=== PATIENT | male | born 1945 | race Caucasian/White ===

== ENCOUNTER → 2020-02-22 | Outpatient (CLI) | payer MEDICARE ==
--- NOTE | 2020-02-22 10:56 | Diagnostic Imaging Report ---
INDICATION: Followup foot fracture. TIME OF EXAM: 9:19 AM. COMPARISON: No prior studies are available for comparison. FINDINGS: There is generalized demineralization of the right foot. There is a fracture at the base of the 5th metatarsal. The fracture line remains clearly visible. The phalanges appear to be intact. The midfoot and hindfoot are intact. There is a plantar calcaneal spur. No other fractures are seen. IMPRESSION: Proximal 5th metatarsal fracture. Dictated by: Dictated on workstation # [id number]
== END ==
LOC: RAD FS 08:53
PROVIDERS: ATTEND Nurse Practitioner
DX: S92.354A Nondisplaced fracture of fifth metatarsal bone, right foot, initial encounter for closed fracture (principal); X58.XXXA Exposure to other specified factors, initial encounter
CPT/HCPCS: 73630

== ENCOUNTER → 2021-06-30 | Outpatient (CLI) | payer MEDICARE | LOC: LAB FS 10:34 | PROVIDERS: ATTEND Emergency Medicine | DX: Z01.812 Encounter for preprocedural laboratory examination (principal); Z20.822 Contact with and (suspected) exposure to COVID-19 | CPT/HCPCS: 87636 ==

== ENCOUNTER → 2021-07-14 | Outpatient (CLI) | payer MEDICARE | LOC: LAB FS 10:04 | PROVIDERS: ATTEND Emergency Medicine | DX: Z01.812 Encounter for preprocedural laboratory examination (principal); Z20.822 Contact with and (suspected) exposure to COVID-19 | CPT/HCPCS: 87636 ==

== ENCOUNTER 2021-12-26 18:55 | Emergency (ER) | payer MEDICARE ==
[~2021-12-26] VITALS: Ht 187.9 cm; Wt 111.9 kg
[2021-12-26 18:59] VITALS: BP 158/81
[2021-12-26] MEDS ORDERED: DOXYCYCLINE 100 MG (VIBRAMYCIN) TABLET PO STA (19:09)
[2021-12-26] MEDS ORDERED: CEPHALEXIN 250 MG (KEFLEX) CAP PO STA (19:09)
--- NOTE | 2021-12-26 19:09 | ED Lower Extremity ---
General Chief Complaint: Lower Extremity Stated Complaint: L LEFT LEG PAIN Source: patient Exam Limitations: no limitations History of Present Illness Date Seen by Provider: Dec 26, 2021 Time Seen by Provider: 19:07 Initial Comments 76-year-old male with past medical history of A. fib status post ablation no longer on anticoagulation, hypertension, seizure disorder coming in due to left lower extremity redness and swelling. He was referred from urgent care. The redness started on Saturday, he has not really hurt him, no recent surgery, no recent long travel, no prior history of DVT or PE, no chest pain, no shortness of breath, no fever. He says nothing like this is ever happened before. He says the redness is slowly spreading up his leg and started in his foot. He says he did hit his kennedy on something and had an open wound that was small over a week ago. He is otherwise denying any other acute complaints. Allergies and Home Medications Allergies Coded Allergies: morphine (Verified Allergy, Unknown, hallucinations, 12/26/21) Patient Home Medication List Home Medication List Reviewed: Yes Cephalexin (Cephalexin) 500 Mg Tablet, 500 MG PO QID Prescribed by: JUSTIN MONDRAGON on 12/26/211933 Doxycycline Hyclate (Doxycycline Hyclate) 100 Mg Tablet, 100 MG PO BID Prescribed by: JUSTIN MONDRAGON on 12/26/211933 Review of Systems Constitutional: No chills, No fever EENTM: No blurred vision Respiratory: no symptoms reported Cardiovascular: no symptoms reported Gastrointestinal: no symptoms reported Genitourinary: no symptoms reported Musculoskeletal: other (left leg swelling and redness) Skin: rash Psychiatric/Neurological: No Symptoms Reported All Other Systems Reviewed Negative Unless Noted: Yes Past Btblguv-Vxcwjh-Ygivgd Hx Patient Social History Tobacco Use?: No Substance use?: No Alcohol Use?: No Past Medical History Surgeries: Yes (skin surgery removal, afib ablation) Physical Exam Vital Signs Vital Signs - First Documented 12/26/21 18:59 Temp 37.0 Pulse 55 Resp 16 B/P (MAP) 158/81 (106) Pulse Ox 96 O2 Delivery Room Air Capillary Refill : Height, Weight, BMI Height: '" Weight: lbs. oz. kg; BMI Method: General Appearance: WD/WN, no apparent distress HEENT: PERRL/EOMI, normal ENT inspection, pharynx normal Neck: non-tender, full range of motion, supple, normal inspection Cardiovascular: regular rate, rhythm, no edema, no murmur Respiratory: chest non-tender, lungs clear, normal breath sounds, no respiratory distress, no accessory muscle use Gastrointestinal: normal bowel sounds, non tender, soft; No distended, No guarding, No rebound Legs: left leg other (Left leg with redness and edema, left leg is roughly 5 cm larger in circumference compared to the right when measured above the ankle, bilateral lower extremity edema, no calf tenderness to squeeze, small, old open wound that is more of an abrasion to the left kennedy) Neurologic/Tendon: normal sensation, normal motor functions, normal tendon functions Neurologic/Psychiatric: no motor/sensory deficits, alert, normal mood/affect Skin: normal color, warm/dry Lymphatic: no adenopathy Progress/Results/Core Measures Results/Orders Lab Results Laboratory Tests Test 12/26/21 19:15 Range/Units White Blood Count 8.8 4.3-11.0 10^3/uL Red Blood Count 4.48 4.30-5.52 10^6/uL Hemoglobin 13.4 13.3-17.7 g/dL Hematocrit 40 40-54 % Mean Corpuscular Volume 89 80-99 fL Mean Corpuscular Hemoglobin 30 25-34 pg Mean Corpuscular Hemoglobin Concent 34 32-36 g/dL Red Cell Distribution Width 15.1 H 10.0-14.5 % Platelet Count 227 130-400 10^3/uL Mean Platelet Volume 12.8 H 9.0-12.2 fL Immature Granulocyte % (Auto) 0 % Neutrophils (%) (Auto) 38 L 42-75 % Lymphocytes (%) (Auto) 39 12-44 % Monocytes (%) (Auto) 12 0-12 % Eosinophils (%) (Auto) 9 0-10 % Basophils (%) (Auto) 1 0-10 % Neutrophils # (Auto) 3.4 1.8-7.8 10^3/uL Lymphocytes # (Auto) 3.5 1.0-4.0 10^3/uL Monocytes # (Auto) 1.0 0.0-1.0 10^3/uL Eosinophils # (Auto) 0.8 H 0.0-0.3 10^3/uL Basophils # (Auto) 0.1 0.0-0.1 10^3/uL Immature Granulocyte # (Auto) 0.0 0.0-0.1 10^3/uL Neutrophils % (Manual) 41 % Lymphocytes % (Manual) 42 % Monocytes % (Manual) 7 % Eosinophils % (Manual) 8 % Basophils % (Manual) 0 % Band Neutrophils 2 % Platelet Estimate NORMAL Poikilocytosis SLIGHT Microcytosis SLIGHT Macrocytosis SLIGHT Prothrombin Time 13.3 12.2-14.7 SEC INR Comment 1.0 0.8-1.4 Activated Partial Thromboplast Time 30 24-35 SEC D-Dimer 0.66 H 0.00-0.49 UG/ML Sodium Level 137 135-145 MMOL/L Potassium Level 4.1 3.6-5.0 MMOL/L Chloride Level 103 98-107 MMOL/L Carbon Dioxide Level 23 21-32 MMOL/L Anion Gap 11 5-14 MMOL/L Blood Urea Nitrogen 27 H 7-18 MG/DL Creatinine 1.66 H 0.60-1.30 MG/DL Estimat Glomerular Filtration Rate 43 BUN/Creatinine Ratio 16 Glucose Level 165 H 70-105 MG/DL Calcium Level 9.7 8.5-10.1 MG/DL C-Reactive Protein < 0.30 <0.50 MG/DL My Orders Orders - JUSTIN MONDRAGON MD Basic Metabolic Panel (12/26/21 19:09) Cbc With Automated Diff (12/26/21 19:09) Fibrin Degradation Products (12/26/21 19:09) Protime With Inr (12/26/21 19:09) Partial Thromboplastin Time (12/26/21 19:09) Crp Fs (12/26/21 19:09) Doxycycline Hyclate Tablet (Vibramycin T (12/26/21 19:09) Cephalexin Capsule (Keflex Capsule) (12/26/21 19:09) Manual Differential (12/26/21 19:15) Vital Signs/I&O 12/26/21 18:59 Temp 37.0 Pulse 55 Resp 16 B/P (MAP) 158/81 (106) Pulse Ox 96 O2 Delivery Room Air Progress Progress Note : Progress Note 76-year-old male with above history coming in due to left lower extremity swelling and redness. ABCs were intact and vitals were stable on presentation. Physical exam with the after mentioned findings. It appears more to be cellulitic on my exam. Is given doxycycline as well as Keflex. Age-adjusted D- dimer is technically negative. I did do a sjzwe-ci-[id number] ultrasound and his popliteal vessels are easily compressible with no signs of clot. I will give him an outpatient order for an ultrasound if things worsen/are not improving on the antibiotics. I believe he stable for discharge with outpatient follow-up. He was sent home with strict return precautions Departure Impression Primary Impression: Cellulitis Qualified Codes: L03.116 - Cellulitis of left lower limb Disposition: HOME, SELF-CARE Condition: Stable Departure-Patient Inst. Decision time for Depature: 19:56 Referrals: SELFDAVID MD (PCP/Family) Primary Care Physician Add. Discharge Instructions: It appears to be cellulitis which is an infection of your skin. You will be on 2 different antibiotics for 10 days. If after couple days the redness is continuing to spread, pain is getting worse, or you have any other concerns, I want you to take the outpatient order form for the ultrasound and call and schedule it. If you have difficulties with this I want you to present to an ER again. If you have severe chest pain or severe shortness of breath that would also want you to go to the ER. Scripts Cephalexin (Cephalexin) 500 Mg Tablet 500 MG PO QID for 10 Days, #40 TAB Prov: JUSTIN MONDRAGON MD 12/26/21 Doxycycline Hyclate (Doxycycline Hyclate) 100 Mg Tablet 100 MG PO BID for 10 Days, #20 TAB 0 Refills Prov: JUSTIN MONDRAGON MD 12/26/21 Work/School Note: Work Release Form Date Seen in the Emergency Department: Dec 26, 2021 Return to Work: Dec 28, 2021 Restrictions: No Restrictions JUSTIN MONDRAGON MD Dec 26, 2021 19:08
[2021-12-26 19:20] LABS: BASOPHILS # (AUTO) 0.1 10^3/uL (0.0-0.1); BASOPHILS % (AUTO) 1 % (0-10); EOSINOPHILS # (AUTO) 0.8 10^3/uL (0.0-0.3); EOSINOPHILS % (AUTO) 9 % (0-10); HEMATOCRIT 40 % (40-54); HEMOGLOBIN 13.4 g/dL (13.3-17.7); LYMPHOCYTES # (AUTO) 3.5 10^3/uL (1.0-4.0); LYMPHOCYTES % (AUTO) 39 % (12-44); MEAN CORPUSCULAR HEMOGLOBIN 30 pg (25-34); MEAN CORPUSCULAR HGB CONC 34 g/dL (32-36); MEAN CORPUSCULAR VOLUME 89 fL (80-99); MEAN PLATELET VOLUME 12.8 fL (9.0-12.2); MONOCYTES % (AUTO) 12 % (0-12); NEUTROPHILS # (AUTO) 3.4 10^3/uL (1.8-7.8); NEUTROPHILS % (AUTO) 38 % (42-75); PLATELET COUNT 227 10^3/uL (130-400); WHITE BLOOD COUNT 8.8 10^3/uL (4.3-11.0)
[2021-12-26] MEDS ORDERED: DOXY100T2 PO (19:34)
[2021-12-26] MEDS ORDERED: CEPH500T PO (19:34)
[2021-12-26 19:35] LABS: PROTHROMBIN TIME PATIENT 13.3 SEC (12.2-14.7)
[2021-12-26 19:43] LABS: BAND NEUTROPHILS 2 %; BUN/CREATININE RATIO 16; CALCIUM 9.7 MG/DL (8.5-10.1); CARBON DIOXIDE 23 MMOL/L (21-32); CHLORIDE 103 MMOL/L (98-107); CREATININE SERUM 1.66 MG/DL (0.60-1.30); FIBRIN DEGRADATION PRODUCTS 0.66 UG/ML (0.00-0.49); GFR ESTIMATED 43; GLUCOSE 165 MG/DL (70-105); NEUTROPHILS % (MANUAL) 41 %; POTASSIUM 4.1 MMOL/L (3.6-5.0); SODIUM 137 MMOL/L (135-145)
[2021-12-26 19:44] LABS: BASOPHILS % (MANUAL) 0 %; EOSINOPHILS % (MANUAL) 8 %; LYMPHOCYTES % (MANUAL) 42 %; MICROCYTOSIS SLIGHT; MONOCYTES % (MANUAL) 7 %; PLATELET ESTIMATE NORMAL; POIKILOCYTOSIS SLIGHT
== END 2021-12-26 20:03 | disposition home or self-care (01) ==
LOC: EDUNIT# 18:55 → ER FS 18:56
DX: L03.116 Cellulitis of left lower limb (principal)
CPT/HCPCS: 36415; 80048; 85007; 85027; 85379; 85610; 85730; 86141

== ENCOUNTER 2023-02-02 16:48 | Emergency (ER) | payer MEDICARE ==
[~2023-02-02] VITALS: Ht 182.9 cm; Wt 104.0 kg
[~2023-02-02 16:48] MED LIST: CEPH500T PO; DOXY100T2 PO
[2023-02-02 16:54] VITALS: BP 157/80
--- NOTE | 2023-02-02 17:02 | ED Integumentary General ---
General Stated Complaint: HEAD LAC History of Present Illness Date Seen by Provider: Feb 02, 2023 Time Seen by Provider: 16:59 Initial Comments 77-year-old male suffered a laceration to his head. He was mowing when under a tree and the tree caused the laceration. Approximately inch and a quarter long. He had tetanus less than 5 years ago. No other injury. Allergies and Home Medications Allergies Coded Allergies: morphine (Verified Allergy, Unknown, hallucinations, 12/26/21) Patient Home Medication List Home Medication List Reviewed: Yes Cephalexin (Cephalexin) 500 Mg Tablet, 500 MG PO QID Prescribed by: JUSTIN MONDRAGON on 12/26/211933 Doxycycline Hyclate (Doxycycline Hyclate) 100 Mg Tablet, 100 MG PO BID Prescribed by: JUSTIN MONDRAGON on 12/26/211933 Review of Systems Review of Systems Constitutional: no symptoms reported EENTM: no symptoms reported Respiratory: no symptoms reported Cardiovascular: no symptoms reported Gastrointestinal: no symptoms reported Genitourinary: no symptoms reported Musculoskeletal: no symptoms reported Skin: see HPI Psychiatric/Neurological: No Symptoms Reported Past Zsjwfif-[id number]-Tgpkew Hx Past Medical History Surgeries: Yes (skin surgery removal, afib ablation) Physical Exam Vital Signs Capillary Refill : General Appearance: WD/WN, no apparent distress Cardiovascular: normal peripheral pulses, regular rate, rhythm Respiratory: lungs clear, normal breath sounds Skin Problem Location: scalp Skin Problem Character: linear (1.25 cm laceration) Procedures/Interventions Wound Location: Scalp Wound Length (cm): 1.2 Wound's Depth, Shape: superficial Wound Explored: clean Wound Debrided: minimal Staple Repair: Stapler 35W Number of Sutures: 3 Progress Patient tolerated well with no immediate complication Progress/Results/Core Measures Progress Progress Note : Progress Note Patient with small 1.25 cm laceration to the scalp that was superficial. It did require 3 marie for closure. There is close approximation with no immediate complications. Patient return in approximately 10 days for staple removal. He was stable and discharged home Departure Impression Primary Impression: Laceration of scalp Qualified Codes: S01.01XA - Laceration without foreign body of scalp, initial encounter Disposition: HOME, SELF-CARE Condition: Stable Departure-Patient Inst. Referrals: SELF,DAVID LERMA (PCP/Family) Primary Care Physician Patient Instructions: Laceration Repair With [place] (DC) Add. Discharge Instructions: Keep clean with warm soapy water. Please return in approximately 10 days for staple removal TANYA MONZON DO Feb 02, 2023 17:02
== END 2023-02-02 17:13 ==
LOC: EDUNIT# 16:48 → ER FS 16:49
DX: S01.01XA Laceration without foreign body of scalp, initial encounter (principal); Z28.310 Unvaccinated for COVID-19; W22.09XA Striking against other stationary object, initial encounter

== ENCOUNTER 2023-02-12 09:25 | Emergency (ER) | payer MEDICARE ==
[~2023-02-12] VITALS: Ht 182.9 cm; Wt 104.0 kg
[2023-02-12 09:33] VITALS: BP 127/66
== END 2023-02-12 09:42 | disposition home or self-care (01) ==
LOC: EDUNIT# 09:25 → ER FS 09:26
DX: Z48.02 Encounter for removal of sutures (principal)